=== PATIENT | male | born 2000 | race Caucasian/White ===

== ENCOUNTER 2024-09-15 22:27 | Emergency (ER) | payer BC, SELFPAY ==
[2024-09-15] VITALS (7 sets, daily range): BP systolic 82–107; BP diastolic 47–65; BMI 22.8
--- NOTE | 2024-09-15 22:38 | ED.GENMED ---
History of Present Illness
General
Chief Complaint: Vaginal Bleeding
Source: patient, records and family
Exam Limitations: none
Time Seen by Provider: 09/15/24 22:37
History of Present Illness
History of Present Illness:
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
feeling/bleeding-- had a syncopal event in triage, she looks pale looked she tells me she is always pale, denies pain-pt perineum covered in blood external vaginal swollen but nontender Salcido catheter is intact
Care team surgery provider Dr. Eleanor Vieyra urologist Dr. Tequila Nava plastic surgeon Barbara lambert is the PA through the [facility]
Phy Exam
Physical Exam
Physical Exam:
Physical Exam
General: Pale cooperative
Neck: Pale
Heart: s1/s2 regular rate and rhythm, no murmur. equal radial pulses.
Lungs: no acute respiratory distress. clear bilaterally
: Swollen external labia and mons left greater than right arteriole pumping in the anterior portion
Neuro: alert and oriented. no focal neurological deficits
Skin: no rash
Psychiatric: well kept. interactive and cooperative
Extremities: no edema.
Course
Orders/Labs/Results
Orders:
Orders
09/15/24 22:37
Cardiac Monitoring- Treatment ONCE
IV Insert/Care/Rem.- Treatment PRN
09/15/24 22:38
0.9% Sodium Chloride 1000 ml [Nss] 2,000 ml IV BOLUS
09/15/24 22:46
Type+Screen Urgent
Complete Blood Count/With Diff Urgent
Comprehensive Metabolic Panel Urgent
PTT Urgent
Prothrombin Time Urgent
09/15/24 23:08
ABO2 Urgent
BBK Wristband Number:
Associate notified that ABO2 has been ordered: [id number]
Date: 09/15/24
Time: 23:07
Stagecraft Professor ID: [id number]
09/15/24 23:25
Blood Bank Products [* Blood Bank Products] Stat
Blood Bank Products: *Packed RBC Leuko(PRBC's)
Quantity: 2
Transfuse Today: Yes
Reason: Bleeding
09/15/24 23:26
Emergent Blood Release Stat
Blood Bank Products: *Packed RBC Leuko(PRBC's)
Quantity: 2
Reason: Bleeding
A Blood Permit is Required for all Blood.
FOR LAB PICKUP:
Take order sheet to Blood Bank to pick up worker blood products in validated cooler
Immediately return to patient care area.
Blood products released by
Blood Products picked up by
Sent to
Date and Time
09/15/24 23:53
Tranexamic Acid 1000 mg/100 ml [Tranexamic Acid] 1,000 mg in 100 ml IV ONCE
09/15/24 23:57
H&H Stat
09/16/24 00:06
Tranexamic Acid 1000 mg/100 ml [Tranexamic Acid] 1,000 mg in 100 ml .ROUTE .STK-MED
09/16/24 01:08
Tranexamic Acid 1000 mg/100 ml [Tranexamic Acid] 1,000 mg in 100 ml .ROUTE .STK-MED
09/16/24 01:12
* Blood Bank Products STAT!
Blood Bank Products: *Packed RBC Leuko(PRBC's)
Quantity: 2 uni
Transfuse Today: Yes
Reason: Bleeding
Abnormal Lab Results
09/15/24 09/15/24
22:46 23:57
RBC 3.08 L 10^6/uL
(4.70-6.10)
Hgb 10.1 L g/dL 6.8 L* D g/dL
(13.0-18.0) (13.0-18.0)
Hct 29.5 L % 20.1 L* %
(39.0-52.0) (39.0-52.0)
MCV 95.8 H fL
(80.0-94.0)
MCH 32.8 H pg
(27.0-31.0)
Crossmatch IS Only See Detail
09/15/24 23:57
09/15/24 22:46
Vital Signs
Initial and Last Documented VS:
Initial Vital Signs
BP
107/61
09/15/24 22:33
Last Documented Vital Signs
Temp Pulse Resp BP Pulse Ox
97.7 F 90 12 83/50 99
09/16/24 00:53 09/16/24 00:53 09/16/24 00:53 09/16/24 00:53 09/16/24 01:01
MDM/Problems Addressed
Differential Diagnosis Includes:
Postop bleeding looks to be from the surgical site
MDM/Problems Addressed:
Postop bleeding
*Pulse Oximetry
SaO2: 99
Oxygen Mode of Delivery: Room air
Patient hypoxic: no
*Electronic Test Technician Interpretation
Rate: normal
Interpretation: normal
Heart Rate: 78
Rhythm: sinus
*Critical Care Note
Total Time (30-74mins, 75-104mins- exclusive of procedures): 76
Update Note
Update Note:
11 PM update hemoglobin noted bleeding slowing down with direct pressure although still firm swelling of the left labia suspect an internal stitch has been disrupted call placed to [facility]
I did speak with her treating surgeon who recommend direct pressure inside and outside what appears to slow down the bleeding she is hypotensive I ordered packed cells and TXA
Repeat blood work noted packed cells infusing patient will be transferred to the ER via ALS/flight
Patient with apparent vagal episode while being transported from stretcher to flight team stretcher, ordered unit of packed cells, again provided direct pressure to the bleeding site second dose of TXA ordered
Patient transferred to [facility] via [facility] flight team in critical condition--it was my opinion that the patient be best served at tertiary care facility where she was treated, I was in contact with her surgeon earlier in the evening and via text
I did not think keeping her at [facility] for further resuscitation will be prudent to be best to get her to tertiary care institution where her treating physicians were
ED Attending Note
-
Portions of this chart may have been created with voice recognition software.� Occasional wrong word or��sound alike� substitutions may have occurred due to the inherent limitations of voice recognition software.
Discharge Plan
Departure
Patient Disposition: Acute Care Hospital
Date of Disposition: 09/16/24
Time of Disposition: 00:27
Patient with high blood pressure during this ER visit?: No
Condition: Serious
Discharge Problem:
Postoperative hemorrhage
Referrals:
UNKNOWN - PT DOES,NOT KNOW [Family Provider]
Hospital Transfer
Other hospital: [facility]
I certify that the patient requires transfer: Yes
Discussed case with accepting physician: Ranjit
Reason for transfer: higher level of care, medical necessity, availability of service and specialties available
Interventions
Interventions:
*Risk Screen - Suicide Last Done: 09/15/24 22:50
*General Assessment Last Done: 09/15/24 22:50
*Neglect/Abuse Screening Last Done: 09/15/24 22:50
*ED- Fall Risk Assessment Last Done: 09/15/24 22:50
*ED COVID-19 Vaccine History Last Done: 09/15/24 22:50
*Nursing Disposition Last Done: 09/16/24 01:40
Discharge Date and Time
Discharge Date/Time: 09/16/24 01:30
Print Language: IRISH
[2024-09-15 22:56] LABS: Hematocrit 29.5 % (39.0-52.0); Hemoglobin 10.1 g/dL (13.0-18.0); Mean Corp Hgb Conc. 34.2 g/dL (33.0-37.0); Mean Corpuscular Volume 95.8 fL (80.0-94.0); Nucleated Red Blood Cells % 0 % (-); Platelet Count 392 10^3/uL (130-400); Red Cell Dist. Width 12.5 % (11.5-14.5)
[2024-09-15 23:05] LABS: INR 0.91; PT 12.7 Sec (11.4-14.6)
[2024-09-15 23:06] LABS: APTT 24.5 Sec (23.4-35.0)
[2024-09-15] MEDS: NSS 2000 IV (23:16)
[2024-09-15 23:19] LABS: ALT (SGPT) 41 U/L (0-50); AST (SGOT) 31 U/L (17-59); Albumin 4.1 g/dl (3.5-5.0); Alkaline Phosphatase 45 U/L (38-126); Blood Urea Nitrogen 14 mg/dl (9-20); Calcium 9.3 mg/dl (8.4-10.2); Carbon Dioxide 28 mmol/L (22-30); Chloride 105 mmol/L (98-107); Estimated Creatinine Clearance > 125 ml/min; Glucose 83 mg/dl (70-99); Potassium 3.9 mmol/L (3.5-5.1); Sodium 138 mmol/L (135-145); Total Protein 6.5 g/dl (6.3-8.2); eGFR > 60.00
[2024-09-16] VITALS (7 sets, daily range): BP systolic 82–103; BP diastolic 44–66
[2024-09-16] MEDS: TRANEXAMIC ACID 100 IV (00:01)
[2024-09-16 00:13] LABS: Hematocrit 20.1 % (39.0-52.0); Hemoglobin 6.8 g/dL (13.0-18.0)
== END 2024-09-16 01:30 | disposition short-term general hospital (02) ==
LOC: EMR 22:27
PROVIDERS: EMERGENCY PHYSICIAN Emergency Medicine
DX: N99.820 Postprocedural hemorrhage of a genitourinary system organ or structure following a genitourinary system procedure (principal); Y83.8 Other surgical procedures as the cause of abnormal reaction of the patient, or of later complication, without mention of misadventure at the time of the procedure; Z87.890 Personal history of sex reassignment
CPT/HCPCS: 96374; 96361; 99291; 36430; 80053; 85014; 85018; 85025; 85610; 85730; 86850; 86900; 86901; 86920; P9016